=== PATIENT | female | born 1940 | race Caucasian/White ===

== ENCOUNTER 2017-10-24 09:32 | Day surgery (SDC) | payer MEDICARE, OTHER ==
[~2017-10-24 09:32] MED LIST: AFEDITAB; AFEDITAB CR; ALBIPROI; ALBU.083IS IH; ALBU90OI; ALBU90OI INH; ALBU90OI6 INH; ANORO ELLIPTA1 EACH INH; ARNUITY ELLIP200 MCG INH; ASPI81CH PO; ASPI81EC; ASPI81EC PO; ATOR20 PO; AZIT250 PO; Alavert D-12 A1 EACH; BACL10 PO; BUDE200IP; BUDE6HFA INH; BUDE6HFA PO; BUME2 PO; Brovana15 MCG/2 M INH; CALCA500CH; CETI10; CHOL10002 PO; CLOT10 SS; COUMADIN; CYAN1000 PO; CYAN500; CYAN500 PO; CYCL10; DICMIS75EC; DIGO.125 PO; DILT180 PO; Diltiazem ER240 M1 PO; ENOX100I SC; ESTR2; ESTR2 PO; FAMO20; FEXO60; FLAX; FLAX PO; FLOVENT INH; FLUC200 PO; FLUT.05NI; FORM12IH; GEMF600; GEMF600 PO; HYDACE10B; HYDROEYE PO; INS70/30PN SC; INSDET100; INSUASPI SC; INSULANPEN SC; IRBE150 PO; IRBE75; LAVAP17G PO; LEVSOD50 PO; LINZESS290 MCG PO; LORA10 PO; LORA10ER PO; LOSA50 PO; LOSARTAN POTAS100 MG PO; METO10 PO; MONT10T; MONT10T PO; MULTI-VITAMIN1 EACH PO; MULVITA PO; MULVITMIND PO; MUPI2TO TOP; Micro-K10 MEQ PO; OMEP20ER; OMEP20ER PO; ONDA4ODT MM; ONDA4ODT PO; ONDA8ODT MM; PERIDEX15 ML PO; PRED10 PO; PRED20 PO; PROC10; Prilosec Otc20 MG; RANI150; ROFL500T PO; SIMBACORT; SODBIC650 PO; SYMBICORT; TERA1; TIOT18; TIOT18 IH; TRAVER2240; VERA180ER PO; VERA240ER PO; WARF2.5 PO; WARF5; WARF5 PO; XARELTO15 MG PO; Xopenex Hfa15 GM INH
== END 2017-10-24 22:55 | disposition home or self-care (01) ==
LOC: US 09:32
PROC: 0W9B3ZZ Drainage of Left Pleural Cavity, Percutaneous Approach (ICD-10-PCS; principal; 2017-10-24)
DX: C34.32 Malignant neoplasm of lower lobe, left bronchus or lung (principal); J91.0 Malignant pleural effusion
CPT/HCPCS: 32555; 71045